=== PATIENT | female | born 1960 | race Two or more races ===

== ENCOUNTER 2016-11-18 16:49 | Emergency (ER) | payer SELFPAY ==
[~2016-11-18] VITALS: Ht 157.5 cm; Wt 82.0 kg
[2016-11-18] MEDS ORDERED: SODIUM CHLORIDE FLUSH 10ML SYR IVF ONE (17:30)
[2016-11-18] MEDS ORDERED: LORA10TA72 PO (17:41)
[2016-11-18 18:06] LABS: BLOOD UREA NITROGEN 14 mg/dL (7-18)
[2016-11-18 18:07] LABS: ASPARTATE AMINO TRANSFERASE 14 U/L (15-37)
[2016-11-18] MEDS ORDERED: FUROSEMIDE 40 MG/4 ML IV ONE (19:30)
[2016-11-18] MEDS ORDERED: FUROSEMIDE 40 MG TABLET PO ONE (19:30)
[2016-11-18 20:01] VITALS: BP 130/81
== END 2016-11-18 20:03 | disposition home or self-care (01) ==
LOC: ED 19:57
DX: R60.9 Edema, unspecified (principal)
CPT/HCPCS: 36415; 80053; 83880; 85025; 93005; 93970; 99285

== ENCOUNTER 2018-01-20 21:56 | Emergency (ER) | payer OTHER ==
[~2018-01-20] VITALS: Ht 157.5 cm; Wt 80.9 kg
[~2018-01-20 21:56] MED LIST: LORA10TA72 PO
[2018-01-20 21:58] VITALS: BP 138/86
== END 2018-01-20 22:47 | disposition home or self-care (01) ==
LOC: ED 22:43
DX: H11.32 Conjunctival hemorrhage, left eye (principal); F17.210 Nicotine dependence, cigarettes, uncomplicated
CPT/HCPCS: 99281; 99282

== ENCOUNTER 2018-02-26 02:06 | Emergency (ER) | payer SELFPAY ==
[~2018-02-26] VITALS: Ht 160 cm; Wt 76.1 kg
[2018-02-26 03:29] LABS: ALBUMIN 3.2 g/dL (3.4-5.0); ANION GAP 5 mmol/L (5-15); CALCIUM 8.8 mg/dL (8.5-10.1); CHLORIDE 107 mmol/L (98-107); CREATININE 0.83 mg/dL (0.55-1.02)
[2018-02-26 03:33] LABS: TROPONIN I < 0.015 ng/mL (0.000-0.045)
[2018-02-26 03:37] LABS: MEAN CORPUSCULAR HGB CONC 32.5 g/dL (32.4-35.8); MEAN CORPUSCULAR VOLUME 86.3 fL (80-100); MEAN PLATELET VOLUME 8.1 fL (7.4-10.4); PLATELET COUNT 300 x10^3/uL (130-400); RED BLOOD COUNT 4.61 x10^6/uL (3.82-5.3); RED CELL DISTRIBUTION WIDTH 12.7 % (9.6-15.2)
[2018-02-26 04:08] LABS: BASOPHILS # (AUTO) 0.03 x10^3/uL (0-0.1); BASOPHILS % (AUTO) 0 % (0-1); EOSINOPHILS # (AUTO) 0.21 x10^3/uL (0-0.4); EOSINOPHILS % (AUTO) 3 % (1-7); LYMPHOCYTES # (AUTO) 1.85 x10^3/uL (1-3.4); LYMPHOCYTES % (AUTO) 22 % (22-44); MD SCAN; MONOCYTES % (AUTO) 10 % (2-9); NEUTROPHILS # (AUTO) 5.41 x10^3/uL (1.8-6.8); NEUTROPHILS % (AUTO) 65 % (42-75)
[2018-02-26 04:39] VITALS: BP 141/68
== END 2018-02-26 04:40 ==
LOC: ED 03:48
DX: R07.89 Other chest pain (principal); Z98.51 Tubal ligation status
CPT/HCPCS: 36415; 71045; 80048; 82040; 84484; 85025; 93005; 99285

== ENCOUNTER 2019-11-06 18:17 | Emergency (ER) | payer MEDICAID ==
[~2019-11-06] VITALS: Ht 160 cm; Wt 92.6 kg
--- NOTE | 2019-11-06 19:07 | NUR ---
PT COMPLAINING OF SOB WITH A DRY COUGH AND LLE SWEELING AND REDNESS THAT BEGAN 1 DAY AGO. 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 MD AT BEDSIDE. PT PLACED ON MONITOR AND PHYSICIAN PERFORMED COVID TEST. PT STABLE AT THIS TIME. WILL CONTINUE TO MONITOR PT.
[2019-11-06 19:22] LABS: MICROSCOPIC AUTO
[2019-11-06 19:46] LABS: MEAN CORPUSCULAR HEMOGLOBIN 28.1 pg (27.0-34.8); MEAN CORPUSCULAR HGB CONC 32.6 g/dL (32.4-35.8); MEAN CORPUSCULAR VOLUME 86.3 fL (80-100); MEAN PLATELET VOLUME 8.6 fL (7.4-10.4); PLATELET COUNT 350 x10^3/uL (130-400); RED BLOOD COUNT 4.54 x10^6/uL (3.82-5.3); RED CELL DISTRIBUTION WIDTH 13.8 % (9.6-15.2)
[2019-11-06 19:53] LABS: ALANINE AMINOTRANSFERASE 42 U/L (12-78); ALBUMIN 2.6 g/dL (3.4-5.0); ANION GAP 6 mmol/L (5-15); CALCIUM 8.9 mg/dL (8.5-10.1); CHLORIDE 102 mmol/L (98-107); CREATININE 0.88 mg/dL (0.55-1.02)
[2019-11-06 19:57] LABS: ALKALINE PHOSPHATASE 161 U/L (45-117); BILIRUBIN,TOTAL 0.6 mg/dL (0.2-1.0); TOTAL PROTEIN 8.5 g/dL (6.4-8.2); TROPONIN I < 0.015 ng/mL (0.000-0.045)
[2019-11-06 20:29] LABS: BASOPHILS % (AUTO) 0 % (0-1); EOSINOPHILS # (AUTO) 0.08 x10^3/uL (0-0.4); EOSINOPHILS % (AUTO) 1 % (1-7); LYMPHOCYTES # (AUTO) 1.85 x10^3/uL (1-3.4); LYMPHOCYTES % (AUTO) 12 % (22-44); MONOCYTES # (AUTO) 1.17 x10^3/uL (0.2-0.8); MONOCYTES % (AUTO) 7 % (2-9); NEUTROPHILS # (AUTO) 12.72 x10^3/uL (1.8-6.8); NEUTROPHILS % (AUTO) 80 % (42-75)
[2019-11-06 20:30] LABS: MD SCAN
[2019-11-06] MEDS ORDERED: POTASSIUM CHLORIDE 20 MEQ TAB.ER.PRT ONE (20:42)
[2019-11-06] MEDS ORDERED: POTASSIUM CHLORIDE 20 MEQ TAB.ER.PRT PO ONE (21:00)
[2019-11-06 21:47] VITALS: BP 132/76
--- NOTE | 2019-11-06 21:54 | NUR ---
REPORT FROM KANDACE BABIN. PT CARE RESPONSIBILITIES ASSUMED.
[2019-11-06] MEDS ORDERED: IBUPROFEN 600 MG TABLET ONE (21:57)
[2019-11-06] MEDS ORDERED: IBUPROFEN 600 MG TABLET PO ONE (22:00)
[2019-11-06] MEDS ORDERED: FUROSEMIDE 20 MG TABLET ONE (22:32)
[2019-11-06] MEDS ORDERED: FUROSEMIDE 20 MG TABLET PO ONE (23:00)
== END 2019-11-06 22:38 | disposition home or self-care (01) ==
LOC: ED 22:08
DX: R06.00 Dyspnea, unspecified (principal); Z20.828 Contact with and (suspected) exposure to other viral communicable diseases; R60.0 Localized edema; M79.10 Myalgia, unspecified site; R07.9 Chest pain, unspecified; R94.31 Abnormal electrocardiogram [ECG] [EKG]; Z98.51 Tubal ligation status
CPT/HCPCS: 36415; 71045; 80053; 81001; 83880; 84484; 85025; 87086; 93005; 93970; 99285; U0001

== ENCOUNTER 2019-11-11 22:26 | Inpatient (IN) | payer BC, MEDICAID ==
[~2019-11-11] VITALS: Ht 160 cm; Wt 91.3 kg
--- NOTE | 2019-11-11 22:45 | NUR ---
THIS IS A 59 YO FEMALE COMING IN FOR LEFT LOWER LEG SWELLING WITH NEW APPEARANCE OF PUS FILLED BLISTERS. PATIENT WAS SEEN HERE LAST WEEK FOR BILATERAL LOWER LEG SWELLING AND WAS DIAGNOSED WITH CELLULITIS AND SENT HOME ON CEFTIN AND Z PACK. PATIENT STATES "THE RIGHT LEG CLEARED UP ALMOST IMMEDIATELY BUT THE LEFT IS GETTING WORSE". NOTABLE SWELLING AND DISCOLORATION OF LOWER EXTERMITY NOTED WITH TWO LARGE OOZING BLISTERS PRESENT. HANDHELD DOPPLER USED TO OBTAIN DORSALIS PULSE, PRESENT. CSM INTACT, TENDER TO PALPATION. NO OTHER SYMPTOMS AT THIS TIME. ERP TO BEDSIDE FOR EVAL.
[2019-11-11] MEDS ORDERED: CEFTRIAXONE PMX 1GM/50ML 50 ML ONE (22:56)
--- NOTE | 2019-11-11 22:57 | NUR ---
PIV PLACED, BLOOD CULTURES X2 DRAWN PRIOR TO ABX ADMIN
[2019-11-11] MEDS ORDERED: VANCOMYCIN PER PHARMACY MC ONE (23:00)
[2019-11-11] MEDS ORDERED: CEFTRIAXONE 1,000 MG in SODIUM CHLORIDE 0.9% 50 ML IVPB ONE (23:00)
[2019-11-11] MEDS ORDERED: VANCOMYCIN 1,800 MG in SODIUM CHLORIDE 0.9% 250 ML IV ONE (23:00)
--- NOTE | 2019-11-11 23:00 | NUR ---
ROCEPHIN STARTED, PATIENT TRANSPORTED TO ULTRASOUND
[2019-11-11 23:14] LABS: BASOPHILS # (AUTO) 0.01 x10^3/uL (0-0.1); BASOPHILS % (AUTO) 0 % (0-1); EOSINOPHILS # (AUTO) 0.25 x10^3/uL (0-0.4); EOSINOPHILS % (AUTO) 2 % (1-7); LYMPHOCYTES % (AUTO) 10 % (22-44); MD NO; MEAN CORPUSCULAR HEMOGLOBIN 27.9 pg (27.0-34.8); MEAN CORPUSCULAR HGB CONC 32.6 g/dL (32.4-35.8); MEAN CORPUSCULAR VOLUME 85.6 fL (80-100); MEAN PLATELET VOLUME 7.9 fL (7.4-10.4); MONOCYTES # (AUTO) 0.45 x10^3/uL (0.2-0.8); MONOCYTES % (AUTO) 3 % (2-9); NEUTROPHILS # (AUTO) 12.87 x10^3/uL (1.8-6.8); NEUTROPHILS % (AUTO) 85 % (42-75); PLATELET COUNT 599 x10^3/uL (130-400); RED BLOOD COUNT 4.35 x10^6/uL (3.82-5.3)
[2019-11-11 23:21] LABS: ALANINE AMINOTRANSFERASE 32 U/L (12-78); ALBUMIN 2.3 g/dL (3.4-5.0); ANION GAP 8 mmol/L (5-15); CALCIUM 8.8 mg/dL (8.5-10.1); CHLORIDE 105 mmol/L (98-107)
[2019-11-11 23:23] LABS: ALKALINE PHOSPHATASE 176 U/L (45-117); BILIRUBIN,TOTAL 0.3 mg/dL (0.2-1.0); TOTAL PROTEIN 8.5 g/dL (6.4-8.2)
--- NOTE | 2019-11-11 23:39 | NUR ---
PATIENT BACK FROM US. ROCEPHIN DONE. VANCOMYCIN RUNNING AT THIS TIME
[2019-11-11] MEDS ORDERED: LIDOCAINE 1%-EPI 1:100K, 20ML ONE (23:55)
[2019-11-12] MEDS ORDERED: MORPHINE SULFATE 4 MG/ML, 1ML IVPush PRN ×2
[2019-11-12] MEDS ORDERED: LIDOCAINE 1%-EPI 1:100K, 20ML SQ ONE
[2019-11-12] MEDS ORDERED: ONDANSETRON 2MG/ML, 2ML IVPush ONE
[2019-11-12] MEDS ORDERED: ONDANSETRON 2MG/ML, 2ML IVPush PRN
[2019-11-12] MEDS ORDERED: MORPHINE SULFATE 4 MG/ML, 1ML ONE (00:04)
[2019-11-12] MEDS ORDERED: ONDANSETRON 2MG/ML, 2ML ONE (00:04)
--- NOTE | 2019-11-12 00:19 | NUR ---
I&D FINISHED, MEDICATED PER EMAR FOR PAIN AND NAUSEA
[2019-11-12] MEDS ORDERED: ONDANSETRON ODT 4 MG PO PRN (00:30)
[2019-11-12] MEDS ORDERED: BISACODYL 10 MG SUPP PR PRN (00:30)
[2019-11-12] MEDS ORDERED: POLYETHYLENE GLYCOL 17 GM PACKET PO PRN (00:30)
[2019-11-12] MEDS ORDERED: VANCOMYCIN PER PHARMACY MC PRN (00:30)
--- NOTE | 2019-11-12 00:36 | NUR ---
REPORT GIVEN TO KANDACE DILLON. PLAN OF CARE DISCUSSED
[2019-11-12 00:54] VITALS: BP 152/87
[2019-11-12] MEDS ORDERED: PHARMACOKINETIC CONSULTATION MC ONE (01:00)
[2019-11-12] MEDS ORDERED: PHARMACOKINETIC MONITORING MC PRN (01:00)
[2019-11-12] MEDS: HEPARIN 5,000 UNITS/ML, 1ML SQ SCH ×3 (01:08→17:26)
[2019-11-12] MEDS: NICOTINE 14MG/24 HR PATCH.TD24 TD SCH (01:08)
[2019-11-12] MEDS: ACETAMINOPHEN 325 MG TABLET PO PRN ×3 (01:08→20:39)
[2019-11-12] MEDS: AMPICILLIN/SULBACTAM 3 GM in SODIUM CHLORIDE 0.9% 100 ML IV SCH ×4 (01:57→20:36)
[2019-11-12] MEDS: NS + 20MEQ KCL 1,000 ML IV SCH ×2 (02:39→12:15)
[2019-11-12 06:04] LABS: MEAN CORPUSCULAR HEMOGLOBIN 27.7 pg (27.0-34.8); MEAN CORPUSCULAR HGB CONC 31.9 g/dL (32.4-35.8); MEAN CORPUSCULAR VOLUME 86.9 fL (80-100); MEAN PLATELET VOLUME 7.7 fL (7.4-10.4); PLATELET COUNT 534 x10^3/uL (130-400); RED BLOOD COUNT 3.68 x10^6/uL (3.82-5.3)
[2019-11-12 06:08] LABS: ANION GAP 6 mmol/L (5-15); CALCIUM 8.4 mg/dL (8.5-10.1); CHLORIDE 107 mmol/L (98-107)
[2019-11-12 06:11] LABS: CREATININE 0.92 mg/dL (0.55-1.02)
[2019-11-12 06:25] LABS: BASOPHILS # (AUTO) 0.01 x10^3/uL (0-0.1); BASOPHILS % (AUTO) 0 % (0-1); EOSINOPHILS # (AUTO) 0.27 x10^3/uL (0-0.4); EOSINOPHILS % (AUTO) 2 % (1-7); LYMPHOCYTES # (AUTO) 1.47 x10^3/uL (1-3.4); LYMPHOCYTES % (AUTO) 12 % (22-44); MD SCAN; MONOCYTES # (AUTO) 0.48 x10^3/uL (0.2-0.8); MONOCYTES % (AUTO) 4 % (2-9); NEUTROPHILS # (AUTO) 9.77 x10^3/uL (1.8-6.8); NEUTROPHILS % (AUTO) 81 % (42-75)
[2019-11-12 06:53] VITALS: BP 139/75
[2019-11-12] MEDS: SENNA/DOCUSATE TABLET PO SCH (07:46)
[2019-11-12] MEDS: LORATADINE 10 MG TABLET PO SCH (07:46)
[2019-11-12] MEDS: morphine SULFATE 10 MG/ML, 1ML IVPush PRN ×2 (07:52→18:11)
[2019-11-12 12:21] VITALS: BP 146/76
[2019-11-12 20:11] VITALS: BP 153/78
[2019-11-12] MEDS: VANCOMYCIN 1,600 MG in SODIUM CHLORIDE 0.9% 250 ML IV SCH (23:19)
[2019-11-13] MEDS: NS + 20MEQ KCL 1,000 ML IV SCH ×2 (01:35→07:53)
[2019-11-13] MEDS: NICOTINE 14MG/24 HR PATCH.TD24 TD SCH (01:38)
[2019-11-13] MEDS: HEPARIN 5,000 UNITS/ML, 1ML SQ SCH ×3 (01:39→18:11)
[2019-11-13] MEDS: morphine SULFATE 10 MG/ML, 1ML IVPush PRN ×4 (02:09→22:25)
[2019-11-13] MEDS: AMPICILLIN/SULBACTAM 3 GM in SODIUM CHLORIDE 0.9% 100 ML IV SCH ×4 (02:17→21:05)
[2019-11-13 02:45] VITALS: BP 148/72
[2019-11-13 05:47] LABS: BASOPHILS # (AUTO) 0.02 x10^3/uL (0-0.1); BASOPHILS % (AUTO) 0 % (0-1); EOSINOPHILS # (AUTO) 0.27 x10^3/uL (0-0.4); EOSINOPHILS % (AUTO) 2 % (1-7); LYMPHOCYTES # (AUTO) 1.83 x10^3/uL (1-3.4); LYMPHOCYTES % (AUTO) 14 % (22-44); MD NO; MEAN CORPUSCULAR HEMOGLOBIN 28.2 pg (27.0-34.8); MEAN CORPUSCULAR HGB CONC 32.5 g/dL (32.4-35.8); MEAN CORPUSCULAR VOLUME 86.9 fL (80-100); MONOCYTES # (AUTO) 0.43 x10^3/uL (0.2-0.8); MONOCYTES % (AUTO) 3 % (2-9); NEUTROPHILS # (AUTO) 10.97 x10^3/uL (1.8-6.8); NEUTROPHILS % (AUTO) 81 % (42-75); PLATELET COUNT 317 x10^3/uL (130-400); RED BLOOD COUNT 4.07 x10^6/uL (3.82-5.3); RED CELL DISTRIBUTION WIDTH 13.9 % (9.6-15.2)
[2019-11-13 06:46] VITALS: BP 176/87
[2019-11-13] MEDS: SENNA/DOCUSATE TABLET PO SCH (07:53)
[2019-11-13] MEDS: LORATADINE 10 MG TABLET PO SCH (07:58)
[2019-11-13] MEDS: ACETAMINOPHEN 325 MG TABLET PO PRN ×2 (09:23→21:05)
[2019-11-13 15:10] VITALS: BP 154/90
[2019-11-13 20:00] VITALS: BP 142/76
[2019-11-13] MEDS: VANCOMYCIN 1,600 MG in SODIUM CHLORIDE 0.9% 250 ML IV SCH (22:44)
[2019-11-14] MEDS: HEPARIN 5,000 UNITS/ML, 1ML SQ SCH ×3 (00:43→17:02)
[2019-11-14] MEDS: NICOTINE 14MG/24 HR PATCH.TD24 TD SCH ×2 (00:43→23:13)
[2019-11-14] MEDS: AMPICILLIN/SULBACTAM 3 GM in SODIUM CHLORIDE 0.9% 100 ML IV SCH ×4 (01:57→20:40)
[2019-11-14 02:00] VITALS: BP 149/82
[2019-11-14] MEDS: morphine SULFATE 10 MG/ML, 1ML IVPush PRN ×4 (03:51→23:13)
[2019-11-14 06:01] LABS: BASOPHILS # (AUTO) 0.03 x10^3/uL (0-0.1); BASOPHILS % (AUTO) 0 % (0-1); EOSINOPHILS # (AUTO) 0.34 x10^3/uL (0-0.4); EOSINOPHILS % (AUTO) 3 % (1-7); LYMPHOCYTES # (AUTO) 1.91 x10^3/uL (1-3.4); LYMPHOCYTES % (AUTO) 16 % (22-44); MD NO; MEAN CORPUSCULAR HEMOGLOBIN 28.1 pg (27.0-34.8); MEAN CORPUSCULAR HGB CONC 32.4 g/dL (32.4-35.8); MEAN CORPUSCULAR VOLUME 86.6 fL (80-100); MEAN PLATELET VOLUME 7.7 fL (7.4-10.4); MONOCYTES # (AUTO) 0.67 x10^3/uL (0.2-0.8); MONOCYTES % (AUTO) 6 % (2-9); NEUTROPHILS # (AUTO) 8.79 x10^3/uL (1.8-6.8); NEUTROPHILS % (AUTO) 75 % (42-75); PLATELET COUNT 501 x10^3/uL (130-400); RED BLOOD COUNT 3.79 x10^6/uL (3.82-5.3); RED CELL DISTRIBUTION WIDTH 13.6 % (9.6-15.2)
[2019-11-14 06:15] LABS: ANION GAP 5 mmol/L (5-15); CALCIUM 8.2 mg/dL (8.5-10.1); CHLORIDE 108 mmol/L (98-107)
[2019-11-14 06:17] LABS: CREATININE 0.86 mg/dL (0.55-1.02)
[2019-11-14] MEDS: SENNA/DOCUSATE TABLET PO SCH (08:01)
[2019-11-14] MEDS: LORATADINE 10 MG TABLET PO SCH (08:01)
[2019-11-14 09:20] VITALS: BP 159/77
[2019-11-14] MEDS ORDERED: GADOTERATE 10 MMOL/20 ML SYR ONE (12:23)
[2019-11-14 14:12] VITALS: BP 158/77
[2019-11-14 17:19] VITALS: BP 166/88
[2019-11-14 20:34] VITALS: BP 155/76
[2019-11-14] MEDS: ACETAMINOPHEN 325 MG TABLET PO PRN (21:26)
[2019-11-14] MEDS: VANCOMYCIN 1,600 MG in SODIUM CHLORIDE 0.9% 250 ML IV SCH (23:13)
[2019-11-15 01:54] VITALS: BP 143/78
[2019-11-15] MEDS: HEPARIN 5,000 UNITS/ML, 1ML SQ SCH ×4 (02:08→18:31)
[2019-11-15] MEDS: AMPICILLIN/SULBACTAM 3 GM in SODIUM CHLORIDE 0.9% 100 ML IV SCH ×4 (02:08→19:52)
[2019-11-15] MEDS ORDERED: MORPHINE SULFATE 4 MG/ML, 1ML ONE (02:12)
[2019-11-15] MEDS: morphine SULFATE 10 MG/ML, 1ML IVPush PRN ×2 (02:15→14:51)
[2019-11-15 05:39] LABS: BASOPHILS # (AUTO) 0.02 x10^3/uL (0-0.1); BASOPHILS % (AUTO) 0 % (0-1); EOSINOPHILS % (AUTO) 4 % (1-7); LYMPHOCYTES # (AUTO) 2.02 x10^3/uL (1-3.4); LYMPHOCYTES % (AUTO) 19 % (22-44); MD NO; MEAN CORPUSCULAR HEMOGLOBIN 27.5 pg (27.0-34.8); MEAN CORPUSCULAR HGB CONC 31.9 g/dL (32.4-35.8); MEAN CORPUSCULAR VOLUME 86.2 fL (80-100); MEAN PLATELET VOLUME 7.7 fL (7.4-10.4); MONOCYTES # (AUTO) 0.61 x10^3/uL (0.2-0.8); MONOCYTES % (AUTO) 6 % (2-9); NEUTROPHILS # (AUTO) 7.47 x10^3/uL (1.8-6.8); NEUTROPHILS % (AUTO) 71 % (42-75); PLATELET COUNT 548 x10^3/uL (130-400); RED BLOOD COUNT 4.14 x10^6/uL (3.82-5.3); RED CELL DISTRIBUTION WIDTH 13.5 % (9.6-15.2)
[2019-11-15 06:31] VITALS: BP 152/79
[2019-11-15] MEDS: SENNA/DOCUSATE TABLET PO SCH (08:08)
[2019-11-15] MEDS: LORATADINE 10 MG TABLET PO SCH (08:08)
[2019-11-15] MEDS ORDERED: OXYcodone 5 MG/5 ML ORAL.SOL UDC PO PRN (09:30)
[2019-11-15] MEDS: OXYcodone IR 5MG TABLET PO PRN ×2 (10:42→17:53)
[2019-11-15] MEDS ORDERED: LIDOCAINE 1%-EPI 1:100K, 50ML INFIL ONE (14:00)
[2019-11-15] MEDS ORDERED: VANCOMYCIN 1,600 MG in SODIUM CHLORIDE 0.9% 250 ML IV SCH ×2 (14:00→15:00)
[2019-11-15] MEDS ORDERED: LIDOCAINE 1%, 20ML INFIL ONE (14:00)
[2019-11-15] MEDS ORDERED: LIDOCAINE 2%-EPI 1:100K, 30ML INFIL ONE (14:00)
[2019-11-15 15:55] VITALS: BP 154/84
[2019-11-15 21:25] VITALS: BP 148/83
[2019-11-16] MEDS: NICOTINE 14MG/24 HR PATCH.TD24 TD SCH (01:50)
[2019-11-16] MEDS: AMPICILLIN/SULBACTAM 3 GM in SODIUM CHLORIDE 0.9% 100 ML IV SCH ×4 (01:51→20:52)
[2019-11-16] MEDS: OXYcodone IR 5MG TABLET PO PRN ×3 (01:51→17:33)
[2019-11-16] MEDS: HEPARIN 5,000 UNITS/ML, 1ML SQ SCH ×3 (01:51→20:56)
[2019-11-16 03:34] VITALS: BP 158/77
[2019-11-16 05:40] LABS: ANION GAP 8 mmol/L (5-15); CALCIUM 8.3 mg/dL (8.5-10.1); CHLORIDE 106 mmol/L (98-107); CREATININE 0.85 mg/dL (0.55-1.02)
[2019-11-16 07:25] LABS: MEAN CORPUSCULAR HEMOGLOBIN 27.7 pg (27.0-34.8); MEAN CORPUSCULAR HGB CONC 32.2 g/dL (32.4-35.8); MEAN CORPUSCULAR VOLUME 86.1 fL (80-100); MEAN PLATELET VOLUME 7.4 fL (7.4-10.4); PLATELET COUNT 521 x10^3/uL (130-400); RED BLOOD COUNT 4.26 x10^6/uL (3.82-5.3); RED CELL DISTRIBUTION WIDTH 13.3 % (9.6-15.2)
[2019-11-16 07:42] LABS: BASOPHILS # (AUTO) 0.02 x10^3/uL (0-0.1); BASOPHILS % (AUTO) 0 % (0-1); EOSINOPHILS # (AUTO) 0.39 x10^3/uL (0-0.4); EOSINOPHILS % (AUTO) 4 % (1-7); LYMPHOCYTES % (AUTO) 20 % (22-44); MD SCAN; MONOCYTES % (AUTO) 7 % (2-9); NEUTROPHILS # (AUTO) 6.96 x10^3/uL (1.8-6.8); NEUTROPHILS % (AUTO) 69 % (42-75)
[2019-11-16 08:17] VITALS: BP 186/80
[2019-11-16] MEDS: LORATADINE 10 MG TABLET PO SCH (08:29)
[2019-11-16] MEDS: SENNA/DOCUSATE TABLET PO SCH (08:29)
[2019-11-16 08:43] VITALS: BP 165/87
[2019-11-16] MEDS: morphine SULFATE 10 MG/ML, 1ML IVPush PRN (10:01)
[2019-11-16] MEDS ORDERED: hydrALAzine 20 MG/ML, 1ML IV PRN (11:30)
[2019-11-16 12:57] VITALS: BP 152/87
[2019-11-16 19:47] VITALS: BP 157/89
[2019-11-17] MEDS: NICOTINE 14MG/24 HR PATCH.TD24 TD SCH (00:17)
[2019-11-17 00:35] VITALS: BP 159/78
[2019-11-17] MEDS: OXYcodone IR 5MG TABLET PO PRN ×3 (00:59→17:15)
[2019-11-17] MEDS: AMPICILLIN/SULBACTAM 3 GM in SODIUM CHLORIDE 0.9% 100 ML IV SCH ×3 (02:32→14:22)
[2019-11-17 06:00] LABS: BASOPHILS # (AUTO) 0.04 x10^3/uL (0-0.1); BASOPHILS % (AUTO) 0 % (0-1); EOSINOPHILS # (AUTO) 0.32 x10^3/uL (0-0.4); EOSINOPHILS % (AUTO) 3 % (1-7); LYMPHOCYTES # (AUTO) 2.39 x10^3/uL (1-3.4); LYMPHOCYTES % (AUTO) 24 % (22-44); MD NO; MEAN CORPUSCULAR HEMOGLOBIN 27.4 pg (27.0-34.8); MEAN CORPUSCULAR VOLUME 85.8 fL (80-100); MEAN PLATELET VOLUME 7.6 fL (7.4-10.4); MONOCYTES # (AUTO) 0.68 x10^3/uL (0.2-0.8); MONOCYTES % (AUTO) 7 % (2-9); NEUTROPHILS # (AUTO) 6.48 x10^3/uL (1.8-6.8); NEUTROPHILS % (AUTO) 65 % (42-75); PLATELET COUNT 519 x10^3/uL (130-400); RED BLOOD COUNT 4.18 x10^6/uL (3.82-5.3); RED CELL DISTRIBUTION WIDTH 13.5 % (9.6-15.2)
[2019-11-17] MEDS: HEPARIN 5,000 UNITS/ML, 1ML SQ SCH ×2 (06:28→14:00)
[2019-11-17 07:21] VITALS: BP 152/75
[2019-11-17] MEDS: LORATADINE 10 MG TABLET PO SCH (07:50)
[2019-11-17] MEDS: SENNA/DOCUSATE TABLET PO SCH (07:50)
[2019-11-17] MEDS: morphine SULFATE 10 MG/ML, 1ML IVPush PRN (09:47)
[2019-11-17] MEDS ORDERED: ACID1TAB3 PO (12:57)
[2019-11-17] MEDS ORDERED: AMOX1TAB64 PO (12:57)
[2019-11-17] MEDS: ACETAMINOPHEN 325 MG TABLET PO PRN (13:02)
[2019-11-17 13:35] VITALS: BP 157/76
== END 2019-11-17 20:52 | disposition home or self-care (01) | DRG 854 ==
LOC: ED 22:44 → EDIP 23:59 → 3N 11-12 00:55
PROVIDERS: ADMIT Internal Medicine; ATTEND Internal Medicine
PROC: 0HBLXZZ Excision of Left Lower Leg Skin, External Approach (ICD-10-PCS; principal; 2019-11-15)
PROC: 0JBP0ZZ Excision of Left Lower Leg Subcutaneous Tissue and Fascia, Open Approach (ICD-10-PCS; 2019-11-15)
DX: A41.9 Sepsis, unspecified organism (principal); L03.116 Cellulitis of left lower limb; I96 Gangrene, not elsewhere classified; L02.416 Cutaneous abscess of left lower limb; E66.9 Obesity, unspecified; E87.6 Hypokalemia; F17.210 Nicotine dependence, cigarettes, uncomplicated; I87.2 Venous insufficiency (chronic) (peripheral); D47.3 Essential (hemorrhagic) thrombocythemia; D72.829 Elevated white blood cell count, unspecified; B95.61 Methicillin susceptible Staphylococcus aureus infection as the cause of diseases classified elsewhere; Z98.51 Tubal ligation status; Z91.09 Other allergy status, other than to drugs and biological substances
CPT/HCPCS: 10060; 36415; 73590; 84145; 96365; 96366; 96375; 99285; J3490; 80048; 80053; 80202; 83605; 85025; 87040; 87070; 87077; 87147; 87186; 87205; G0378; J0295; J0696; J1644; J2405; J3370; J3480; A9575; J2270; J7050

== ENCOUNTER 2019-11-27 07:56 | Outpatient (CLI) | payer BC, MEDICAID ==
[~2019-11-27 07:56] MED LIST changes: +ACID1TAB3 PO; +AMOX1TAB64 PO
== END 2019-11-27 23:59 | disposition home or self-care (01) ==
LOC: WOUND 07:56
PROVIDERS: ATTEND Internal Medicine
DX: T81.89XA Other complications of procedures, not elsewhere classified, initial encounter (principal); L97.222 Non-pressure chronic ulcer of left calf with fat layer exposed; L03.116 Cellulitis of left lower limb; I87.2 Venous insufficiency (chronic) (peripheral); J45.909 Unspecified asthma, uncomplicated; I96 Gangrene, not elsewhere classified; F17.210 Nicotine dependence, cigarettes, uncomplicated; E66.9 Obesity, unspecified; Z98.51 Tubal ligation status; Z68.33 Body mass index [BMI] 33.0-33.9, adult; Y83.8 Other surgical procedures as the cause of abnormal reaction of the patient, or of later complication, without mention of misadventure at the time of the procedure; Y92.89 Other specified places as the place of occurrence of the external cause
CPT/HCPCS: 11042; 99215

== ENCOUNTER → 2019-12-04 | Outpatient (CLI) | payer BC, MEDICAID | END | disposition home or self-care (01) | LOC: WOUND 08:51 | PROVIDERS: ATTEND Internal Medicine | DX: T81.89XD Other complications of procedures, not elsewhere classified, subsequent encounter (principal); L97.222 Non-pressure chronic ulcer of left calf with fat layer exposed; L03.116 Cellulitis of left lower limb; I87.2 Venous insufficiency (chronic) (peripheral); J45.909 Unspecified asthma, uncomplicated; I96 Gangrene, not elsewhere classified; E66.9 Obesity, unspecified; F17.210 Nicotine dependence, cigarettes, uncomplicated; Z98.51 Tubal ligation status; Z68.33 Body mass index [BMI] 33.0-33.9, adult; Y83.8 Other surgical procedures as the cause of abnormal reaction of the patient, or of later complication, without mention of misadventure at the time of the procedure | CPT/HCPCS: 97597 ==

== ENCOUNTER → 2019-12-25 | Outpatient (CLI) | payer BC, MEDICAID | END | disposition home or self-care (01) | LOC: WOUND 10:35 | PROVIDERS: ATTEND Internal Medicine | DX: T81.89XD Other complications of procedures, not elsewhere classified, subsequent encounter (principal); L97.222 Non-pressure chronic ulcer of left calf with fat layer exposed; L03.116 Cellulitis of left lower limb; I87.2 Venous insufficiency (chronic) (peripheral); J45.909 Unspecified asthma, uncomplicated; I96 Gangrene, not elsewhere classified; E66.9 Obesity, unspecified; F17.210 Nicotine dependence, cigarettes, uncomplicated; Z98.51 Tubal ligation status; Z68.33 Body mass index [BMI] 33.0-33.9, adult; Z91.09 Other allergy status, other than to drugs and biological substances; Y83.8 Other surgical procedures as the cause of abnormal reaction of the patient, or of later complication, without mention of misadventure at the time of the procedure | CPT/HCPCS: 97597 ==

== ENCOUNTER → 2020-01-01 | Outpatient (CLI) | payer BC, MEDICAID | END | disposition home or self-care (01) | LOC: WOUND 14:05 | PROVIDERS: ATTEND Internal Medicine | DX: T81.89XD Other complications of procedures, not elsewhere classified, subsequent encounter (principal); L97.222 Non-pressure chronic ulcer of left calf with fat layer exposed; L03.116 Cellulitis of left lower limb; I87.2 Venous insufficiency (chronic) (peripheral); J45.909 Unspecified asthma, uncomplicated; I96 Gangrene, not elsewhere classified; E66.9 Obesity, unspecified; F17.210 Nicotine dependence, cigarettes, uncomplicated; Z98.51 Tubal ligation status; Z68.33 Body mass index [BMI] 33.0-33.9, adult; Z91.09 Other allergy status, other than to drugs and biological substances; Y83.8 Other surgical procedures as the cause of abnormal reaction of the patient, or of later complication, without mention of misadventure at the time of the procedure | CPT/HCPCS: 97597 ==

== ENCOUNTER → 2020-01-10 | Outpatient (CLI) | payer MEDICAID | END | disposition home or self-care (01) | LOC: WOUND 13:03 | PROVIDERS: ATTEND Internal Medicine Cardiovascular Disease | DX: T81.89XD Other complications of procedures, not elsewhere classified, subsequent encounter (principal); L97.222 Non-pressure chronic ulcer of left calf with fat layer exposed; L03.116 Cellulitis of left lower limb; I87.2 Venous insufficiency (chronic) (peripheral); J45.909 Unspecified asthma, uncomplicated; I96 Gangrene, not elsewhere classified; E66.9 Obesity, unspecified; I10 Essential (primary) hypertension; F17.210 Nicotine dependence, cigarettes, uncomplicated; Z98.51 Tubal ligation status; Z68.33 Body mass index [BMI] 33.0-33.9, adult; Z91.09 Other allergy status, other than to drugs and biological substances; Y83.8 Other surgical procedures as the cause of abnormal reaction of the patient, or of later complication, without mention of misadventure at the time of the procedure | CPT/HCPCS: 97602 ==

== ENCOUNTER 2020-04-19 21:12 | Emergency (ER) | payer MEDICAID ==
[~2020-04-19] VITALS: Ht 160 cm; Wt 94.5 kg
[2020-04-19 21:16] VITALS: BP 193/90
--- NOTE | 2020-04-19 23:33 | NUR ---
No answer when called for repeat vitals @ [id number].
--- NOTE | 2020-04-19 23:58 | NUR ---
No answer when called for repeat vitals @ [id number].
== END 2020-04-20 00:01 | disposition left against medical advice (07) ==
LOC: ED 23:55
DX: T63.301A Toxic effect of unspecified spider venom, accidental (unintentional), initial encounter (principal); R51.9 Headache, unspecified; I10 Essential (primary) hypertension; Y92.89 Other specified places as the place of occurrence of the external cause

== ENCOUNTER 2020-05-01 12:58 | Outpatient (CLI) | payer MEDICAID ==
[~2020-05-01 12:58] MED LIST changes: +ACET325T26 PO; +CEPH-368 PO; +FURO-93 PO; +LISI-167 PO
== END 2020-05-01 23:59 | disposition home or self-care (01) ==
LOC: WOUND 12:58
PROVIDERS: ATTEND Podiatrist Foot & Ankle Surgery
DX: I87.312 Chronic venous hypertension (idiopathic) with ulcer of left lower extremity (principal); L97.222 Non-pressure chronic ulcer of left calf with fat layer exposed; J45.909 Unspecified asthma, uncomplicated; Z98.51 Tubal ligation status; E66.9 Obesity, unspecified; Z68.35 Body mass index [BMI] 35.0-35.9, adult; Z87.891 Personal history of nicotine dependence
CPT/HCPCS: 97597

== ENCOUNTER → 2020-05-08 | Outpatient (CLI) | payer MEDICAID | END | disposition home or self-care (01) | LOC: WOUND 13:59 | PROVIDERS: ATTEND Internal Medicine | DX: I87.312 Chronic venous hypertension (idiopathic) with ulcer of left lower extremity (principal); L97.222 Non-pressure chronic ulcer of left calf with fat layer exposed; L97.822 Non-pressure chronic ulcer of other part of left lower leg with fat layer exposed; J45.909 Unspecified asthma, uncomplicated; Z98.51 Tubal ligation status; E66.9 Obesity, unspecified; Z68.35 Body mass index [BMI] 35.0-35.9, adult; Z87.891 Personal history of nicotine dependence | CPT/HCPCS: 97597 ==

== ENCOUNTER → 2020-05-15 | Outpatient (CLI) | payer MEDICAID | END | disposition home or self-care (01) | LOC: WOUND 08:59 | PROVIDERS: ATTEND Internal Medicine | DX: I87.312 Chronic venous hypertension (idiopathic) with ulcer of left lower extremity (principal); L97.222 Non-pressure chronic ulcer of left calf with fat layer exposed; L97.822 Non-pressure chronic ulcer of other part of left lower leg with fat layer exposed; L03.116 Cellulitis of left lower limb; J45.909 Unspecified asthma, uncomplicated; Z98.51 Tubal ligation status; E66.9 Obesity, unspecified; Z68.35 Body mass index [BMI] 35.0-35.9, adult; Z87.891 Personal history of nicotine dependence | CPT/HCPCS: 97597 ==

== ENCOUNTER → 2020-06-03 | Outpatient (CLI) | payer MEDICAID | END | disposition home or self-care (01) | LOC: WOUND 08:01 | PROVIDERS: ATTEND Internal Medicine | DX: I87.312 Chronic venous hypertension (idiopathic) with ulcer of left lower extremity (principal); L97.222 Non-pressure chronic ulcer of left calf with fat layer exposed; L97.822 Non-pressure chronic ulcer of other part of left lower leg with fat layer exposed; L03.116 Cellulitis of left lower limb; J45.909 Unspecified asthma, uncomplicated; E66.9 Obesity, unspecified; Z68.35 Body mass index [BMI] 35.0-35.9, adult; Z87.891 Personal history of nicotine dependence; Z98.51 Tubal ligation status | CPT/HCPCS: 97597 ==

== ENCOUNTER → 2020-06-07 | Outpatient (CLI) | payer MEDICAID | END | disposition home or self-care (01) | LOC: CVU 12:45 | PROVIDERS: ATTEND Internal Medicine | DX: L97.222 Non-pressure chronic ulcer of left calf with fat layer exposed (principal); I87.312 Chronic venous hypertension (idiopathic) with ulcer of left lower extremity; I70.203 Unspecified atherosclerosis of native arteries of extremities, bilateral legs; Z87.891 Personal history of nicotine dependence | CPT/HCPCS: 93922; 93925; 93970 ==

== ENCOUNTER → 2020-06-10 | Outpatient (CLI) | payer MEDICAID | END | disposition home or self-care (01) | LOC: WOUND 08:40 | PROVIDERS: ATTEND Internal Medicine Cardiovascular Disease | DX: I87.312 Chronic venous hypertension (idiopathic) with ulcer of left lower extremity (principal); L97.222 Non-pressure chronic ulcer of left calf with fat layer exposed; L97.822 Non-pressure chronic ulcer of other part of left lower leg with fat layer exposed; L03.116 Cellulitis of left lower limb; J45.909 Unspecified asthma, uncomplicated; E66.9 Obesity, unspecified; Z68.35 Body mass index [BMI] 35.0-35.9, adult; Z87.891 Personal history of nicotine dependence; Z98.51 Tubal ligation status | CPT/HCPCS: 29581 ==

== ENCOUNTER → 2020-06-17 | Outpatient (CLI) | payer MEDICAID | END | disposition home or self-care (01) | LOC: WOUND 07:46 | PROVIDERS: ATTEND Internal Medicine | DX: I87.312 Chronic venous hypertension (idiopathic) with ulcer of left lower extremity (principal); L97.222 Non-pressure chronic ulcer of left calf with fat layer exposed; L97.822 Non-pressure chronic ulcer of other part of left lower leg with fat layer exposed; L03.116 Cellulitis of left lower limb; J45.909 Unspecified asthma, uncomplicated; E66.9 Obesity, unspecified; Z68.35 Body mass index [BMI] 35.0-35.9, adult; Z87.891 Personal history of nicotine dependence; Z98.51 Tubal ligation status | CPT/HCPCS: 97597 ==

== ENCOUNTER 2020-06-24 08:31 | Outpatient (CLI) | payer MEDICAID | END 2020-06-24 23:59 | disposition home or self-care (01) | LOC: WOUND 08:31 | PROVIDERS: ATTEND Internal Medicine | DX: I87.312 Chronic venous hypertension (idiopathic) with ulcer of left lower extremity (principal); I70.248 Atherosclerosis of native arteries of left leg with ulceration of other part of lower leg; L97.822 Non-pressure chronic ulcer of other part of left lower leg with fat layer exposed; I70.242 Atherosclerosis of native arteries of left leg with ulceration of calf; L97.222 Non-pressure chronic ulcer of left calf with fat layer exposed; I70.201 Unspecified atherosclerosis of native arteries of extremities, right leg; J45.909 Unspecified asthma, uncomplicated; E66.9 Obesity, unspecified; F17.290 Nicotine dependence, other tobacco product, uncomplicated; Z68.35 Body mass index [BMI] 35.0-35.9, adult; Z98.51 Tubal ligation status | CPT/HCPCS: 97597 ==

== ENCOUNTER 2020-07-01 08:25 | Outpatient (CLI) | payer MEDICAID | END 2020-07-01 23:59 | disposition home or self-care (01) | LOC: WOUND 08:25 | PROVIDERS: ATTEND Internal Medicine | DX: I87.312 Chronic venous hypertension (idiopathic) with ulcer of left lower extremity (principal); I70.248 Atherosclerosis of native arteries of left leg with ulceration of other part of lower leg; L97.822 Non-pressure chronic ulcer of other part of left lower leg with fat layer exposed; I70.242 Atherosclerosis of native arteries of left leg with ulceration of calf; L97.222 Non-pressure chronic ulcer of left calf with fat layer exposed; I70.201 Unspecified atherosclerosis of native arteries of extremities, right leg; J45.909 Unspecified asthma, uncomplicated; L84 Corns and callosities; E66.9 Obesity, unspecified; F17.290 Nicotine dependence, other tobacco product, uncomplicated; Z68.35 Body mass index [BMI] 35.0-35.9, adult; Z98.51 Tubal ligation status | CPT/HCPCS: 97597 ==

== ENCOUNTER → 2020-07-08 | Outpatient (CLI) | payer MEDICAID | END | disposition home or self-care (01) | LOC: WOUND 08:28 | PROVIDERS: ATTEND Internal Medicine | DX: I87.312 Chronic venous hypertension (idiopathic) with ulcer of left lower extremity (principal); I70.248 Atherosclerosis of native arteries of left leg with ulceration of other part of lower leg; L97.822 Non-pressure chronic ulcer of other part of left lower leg with fat layer exposed; I70.242 Atherosclerosis of native arteries of left leg with ulceration of calf; L97.222 Non-pressure chronic ulcer of left calf with fat layer exposed; I70.201 Unspecified atherosclerosis of native arteries of extremities, right leg; J45.909 Unspecified asthma, uncomplicated; L84 Corns and callosities; E66.9 Obesity, unspecified; F17.290 Nicotine dependence, other tobacco product, uncomplicated; Z68.35 Body mass index [BMI] 35.0-35.9, adult; Z98.51 Tubal ligation status | CPT/HCPCS: 97597 ==

== ENCOUNTER → 2020-07-15 | Outpatient (CLI) | payer MEDICAID | END | disposition home or self-care (01) | LOC: WOUND 08:00 | PROVIDERS: ATTEND Internal Medicine | DX: I87.312 Chronic venous hypertension (idiopathic) with ulcer of left lower extremity (principal); I70.248 Atherosclerosis of native arteries of left leg with ulceration of other part of lower leg; L97.822 Non-pressure chronic ulcer of other part of left lower leg with fat layer exposed; I70.242 Atherosclerosis of native arteries of left leg with ulceration of calf; L97.222 Non-pressure chronic ulcer of left calf with fat layer exposed; L03.116 Cellulitis of left lower limb; I70.201 Unspecified atherosclerosis of native arteries of extremities, right leg; J45.909 Unspecified asthma, uncomplicated; E66.9 Obesity, unspecified; Z68.35 Body mass index [BMI] 35.0-35.9, adult; Z87.891 Personal history of nicotine dependence; Z98.51 Tubal ligation status | CPT/HCPCS: 97597 ==

== ENCOUNTER 2020-07-22 08:34 | Outpatient (CLI) | payer MEDICAID | END 2020-07-22 23:59 | disposition home or self-care (01) | LOC: WOUND 08:34 | PROVIDERS: ATTEND Internal Medicine | DX: I87.312 Chronic venous hypertension (idiopathic) with ulcer of left lower extremity (principal); I70.248 Atherosclerosis of native arteries of left leg with ulceration of other part of lower leg; L97.822 Non-pressure chronic ulcer of other part of left lower leg with fat layer exposed; I70.242 Atherosclerosis of native arteries of left leg with ulceration of calf; L97.222 Non-pressure chronic ulcer of left calf with fat layer exposed; I70.201 Unspecified atherosclerosis of native arteries of extremities, right leg; J45.909 Unspecified asthma, uncomplicated; L84 Corns and callosities; E66.9 Obesity, unspecified; F17.290 Nicotine dependence, other tobacco product, uncomplicated; Z68.35 Body mass index [BMI] 35.0-35.9, adult; Z98.51 Tubal ligation status | CPT/HCPCS: 97597 ==

== ENCOUNTER → 2020-07-29 | Outpatient (CLI) | payer MEDICAID | END | disposition home or self-care (01) | LOC: WOUND 08:25 | PROVIDERS: ATTEND Internal Medicine | DX: I87.312 Chronic venous hypertension (idiopathic) with ulcer of left lower extremity (principal); I70.248 Atherosclerosis of native arteries of left leg with ulceration of other part of lower leg; L97.822 Non-pressure chronic ulcer of other part of left lower leg with fat layer exposed; I70.242 Atherosclerosis of native arteries of left leg with ulceration of calf; L97.222 Non-pressure chronic ulcer of left calf with fat layer exposed; I70.201 Unspecified atherosclerosis of native arteries of extremities, right leg; J45.909 Unspecified asthma, uncomplicated; L84 Corns and callosities; Z98.51 Tubal ligation status; E66.9 Obesity, unspecified; F17.290 Nicotine dependence, other tobacco product, uncomplicated; Z68.35 Body mass index [BMI] 35.0-35.9, adult | CPT/HCPCS: 97597 ==

== ENCOUNTER → 2020-08-05 | Outpatient (CLI) | payer MEDICAID | END | disposition home or self-care (01) | LOC: WOUND 08:25 | PROVIDERS: ATTEND Internal Medicine | DX: I87.312 Chronic venous hypertension (idiopathic) with ulcer of left lower extremity (principal); I70.248 Atherosclerosis of native arteries of left leg with ulceration of other part of lower leg; L97.822 Non-pressure chronic ulcer of other part of left lower leg with fat layer exposed; I70.242 Atherosclerosis of native arteries of left leg with ulceration of calf; L97.222 Non-pressure chronic ulcer of left calf with fat layer exposed; I70.201 Unspecified atherosclerosis of native arteries of extremities, right leg; J45.909 Unspecified asthma, uncomplicated; L84 Corns and callosities; Z98.51 Tubal ligation status; E66.9 Obesity, unspecified; F17.290 Nicotine dependence, other tobacco product, uncomplicated; Z68.35 Body mass index [BMI] 35.0-35.9, adult | CPT/HCPCS: 97597 ==